=== PATIENT | male | born 1935 | race Caucasian/White ===

== ENCOUNTER 2017-04-26 11:26 | Outpatient (CLI) | payer MEDICARE ==
[~2017-04-26 11:26] MED LIST: ACET-2605 PO; ASCO500C16 PO; ASPI81TA2 PO; CHOL100040 PO; DIPH-530 PO; DOCU-25 PO; LOSA50TA21 PO; METO100T3 PO; QUIN1POW PO; ROSU5TAB PO; TAMS0.4C34 PO; TORS20TA3 PO; UBID100C13 PO
== END 2017-04-26 23:59 | disposition home or self-care (01) ==
LOC: WOU 11:26
PROVIDERS: ATTEND Podiatrist Foot & Ankle Surgery
DX: L86 Keratoderma in diseases classified elsewhere (principal); L85.1 Acquired keratosis [keratoderma] palmaris et plantaris; M84.374S Stress fracture, right foot, sequela; X58.XXXS Exposure to other specified factors, sequela; M79.671 Pain in right foot; Z85.118 Personal history of other malignant neoplasm of bronchus and lung
CPT/HCPCS: G0463

== ENCOUNTER 2019-01-26 12:54 | Emergency (ER) | payer MEDICARE ==
[~2019-01-26] VITALS: Ht 170.2 cm; Wt 107.5 kg
[~2019-01-26 12:54] MED LIST changes: +ASPI-1169 PO; -ASPI81TA2 PO; +DOCU-141 PO; -DOCU-25 PO; -LOSA50TA21 PO; +LOSA50TA39 PO; +METO100T14 PO; -METO100T3 PO
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
[2019-01-26 13:50] VITALS: BP 111/47
[2019-01-26] MEDS ORDERED: METO2.5T2 PO (13:56)
[2019-01-26] MEDS ORDERED: COLC0.6C3 PO (13:56)
[2019-01-26] MEDS ORDERED: DOXA4TAB3 PO (13:56)
[2019-01-26] MEDS ORDERED: GABA-534 PO (13:56)
[2019-01-26] MEDS ORDERED: HYDR-3972 PO (13:56)
[2019-01-26] MEDS ORDERED: ACET1TAB25 PO (13:56)
[2019-01-26] MEDS ORDERED: ASCO500T10 PO (13:56)
[2019-01-26] MEDS ORDERED: VITA400C68 PO (13:56)
[2019-01-26] MEDS ORDERED: ALLO100T PO (13:56)
[2019-01-26] MEDS ORDERED: DIPH25CA6 PO (13:56)
[2019-01-26] MEDS ORDERED: NIFE60TA69 PO (13:56)
[2019-01-26] MEDS ORDERED: CHOL100044 PO (13:56)
[2019-01-26] MEDS ORDERED: HYDROCODONE/APAP 10/325MG 1 EA TABLET ONE (13:57)
[2019-01-26] MEDS ORDERED: HYDROCODONE/APAP 10/325MG 1 EA TABLET PO ONE (14:00)
--- NOTE | 2019-01-26 14:47 | NUR ---
Patient discharged to home in stable condition. Written and verbal after care instructions given. Patient verbalizes understanding of instruction.
== END 2019-01-26 14:50 | disposition home or self-care (01) ==
LOC: ER 13:00
DX: S42.341A Displaced spiral fracture of shaft of humerus, right arm, initial encounter for closed fracture (principal); I12.0 Hypertensive chronic kidney disease with stage 5 chronic kidney disease or end stage renal disease; N18.6 End stage renal disease; E78.5 Hyperlipidemia, unspecified; N40.0 Benign prostatic hyperplasia without lower urinary tract symptoms; Z95.818 Presence of other cardiac implants and grafts; Z98.890 Other specified postprocedural states; Z99.2 Dependence on renal dialysis; Z85.118 Personal history of other malignant neoplasm of bronchus and lung; Z88.0 Allergy status to penicillin; Z88.1 Allergy status to other antibiotic agents; Z79.899 Other long term (current) drug therapy; Z79.82 Long term (current) use of aspirin; W01.0XXA Fall on same level from slipping, tripping and stumbling without subsequent striking against object, initial encounter; Y93.89 Activity, other specified; Y92.89 Other specified places as the place of occurrence of the external cause; Y99.8 Other external cause status
CPT/HCPCS: 73020; 73060-TC

== ENCOUNTER 2019-06-22 14:40 | Emergency (ER) | payer MEDICARE, OTHER ==
[~2019-06-22] VITALS: Ht 165.1 cm; Wt 93.0 kg
[~2019-06-22 14:40] MED LIST changes: +ACET1TAB25 PO; +ALLO100T PO; -ASCO500C16 PO; +ASCO500T10 PO; -CHOL100040 PO; +CHOL100044 PO; +COLC0.6C3 PO; -DIPH-530 PO; +DIPH25CA51 PO; +DOXA4TAB3 PO; +GABA-534 PO; +HYDR-3972 PO; +METO2.5T2 PO; +NIFE60TA69 PO; -TAMS0.4C34 PO; +VITA400C68 PO
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
--- NOTE | 2019-06-22 15:05 | NUR ---
wheeled out via [place] for ct scan
[2019-06-22 15:43] LABS: CALCIUM, SERUM 9.6 mg/dL (8.5-10.1); CARBON DIOXIDE 29 mmol/L (21-32); CHLORIDE 96 mmol/L (98-107); GLUCOSE 82 mg/dL (74-106); POTASSIUM 5.3 mmol/L (3.5-5.1); SODIUM SERUM 135 mmol/L (136-145); UREA NITROGEN, BLOOD 70 mg/dL (7-18)
[2019-06-22 15:44] LABS: CREATININE 7.9 mg/dL (0.6-1.3)
[2019-06-22 15:59] VITALS: BP 132/75
--- NOTE | 2019-06-22 16:03 | NUR ---
dr wan talking to dr maynard.
--- NOTE | 2019-06-22 16:53 | NUR ---
Patient discharged to home in stable condition. Written and verbal after care instructions given. Patient verbalizes understanding of instruction.
== END 2019-06-22 16:56 | disposition home or self-care (01) ==
LOC: ER 14:41
DX: S09.8XXA Other specified injuries of head, initial encounter (principal); I12.0 Hypertensive chronic kidney disease with stage 5 chronic kidney disease or end stage renal disease; E11.22 Type 2 diabetes mellitus with diabetic chronic kidney disease; N18.6 End stage renal disease; E78.5 Hyperlipidemia, unspecified; N40.0 Benign prostatic hyperplasia without lower urinary tract symptoms; Z99.2 Dependence on renal dialysis; Z95.5 Presence of coronary angioplasty implant and graft; Z85.118 Personal history of other malignant neoplasm of bronchus and lung; Z98.890 Other specified postprocedural states; Z88.0 Allergy status to penicillin; Z88.1 Allergy status to other antibiotic agents; Z90.49 Acquired absence of other specified parts of digestive tract; Z79.899 Other long term (current) drug therapy; Z79.82 Long term (current) use of aspirin; W22.8XXA Striking against or struck by other objects, initial encounter; Y93.89 Activity, other specified; Y92.89 Other specified places as the place of occurrence of the external cause; Y99.8 Other external cause status
CPT/HCPCS: 36415; 70450-TC; 80048-TC

== ENCOUNTER 2019-07-25 16:42 | Emergency (ER) | payer MEDICARE ==
[~2019-07-25] VITALS: Ht 165.1 cm; Wt 93.0 kg
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
--- NOTE | 2019-07-25 17:40 | NUR ---
PT BROUGHT TO CT
[2019-07-25] MEDS ORDERED: LIDOCAINE 1%-EPI 1:100,000 20 ML VIAL ONE (17:42)
[2019-07-25] MEDS ORDERED: BACI/NEOM/POLY B OINT PKT 1 UDPKT PACKET ONE (17:42)
--- NOTE | 2019-07-25 17:45 | NUR ---
PT BROUGHT BACK FROM CT
--- NOTE | 2019-07-25 17:48 | NUR ---
EMT AT BEDSIDE FOR WOUND CARE
[2019-07-25] MEDS ORDERED: LIDOCAINE 1%-EPI 1:100,000 20 ML VIAL TP ONE (18:00)
[2019-07-25] MEDS ORDERED: BACI/NEOM/POLY B OINT PKT 1 UDPKT PACKET TP ONE (18:00)
--- NOTE | 2019-07-25 18:50 | NUR ---
EMT AT BEDSIDE FOR SPLINT PLACEMENT AND SLING.
[2019-07-25] MEDS ORDERED: HYDROCODONE/APAP 5/325MG 1 EACH TABLET ONE (18:58)
[2019-07-25] MEDS ORDERED: HYDROCODONE/APAP 5/325MG 1 EACH TABLET PO ONE (19:00)
--- NOTE | 2019-07-25 19:22 | NUR ---
Note jean pierre in EDM - 07/25/19 at 1925 by RONI Patient discharged to home in stable condition. Written and verbal after care instructions given. Patient verbalizes understanding of instruction. PT ambulatory with a steady gait. VSS.
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
[2019-07-25 19:26] VITALS: BP 126/82
== END 2019-07-25 19:33 | disposition home or self-care (01) ==
LOC: ER 16:42
DX: S52.021A Displaced fracture of olecranon process without intraarticular extension of right ulna, initial encounter for closed fracture (principal); S02.2XXA Fracture of nasal bones, initial encounter for closed fracture; S01.81XA Laceration without foreign body of other part of head, initial encounter; S01.311A Laceration without foreign body of right ear, initial encounter; S61.412A Laceration without foreign body of left hand, initial encounter; I10 Essential (primary) hypertension; E78.5 Hyperlipidemia, unspecified; N40.0 Benign prostatic hyperplasia without lower urinary tract symptoms; Z88.0 Allergy status to penicillin; Z98.890 Other specified postprocedural states; Z88.1 Allergy status to other antibiotic agents; Z79.899 Other long term (current) drug therapy; Z79.82 Long term (current) use of aspirin; W01.0XXA Fall on same level from slipping, tripping and stumbling without subsequent striking against object, initial encounter; Y93.89 Activity, other specified; Y92.26 Movie house or cinema as the place of occurrence of the external cause; Y99.8 Other external cause status
CPT/HCPCS: 12013; 29105; 70450; 70486; 73070; 99284; A6403; J3490